=== PATIENT | female | born 1990 | race Two or more races ===

== ENCOUNTER 2016-10-17 15:16 | Emergency (ER) | payer MEDICAID, OTHER ==
[~2016-10-17] VITALS: Ht 162.6 cm; Wt 49.9 kg
[2016-10-17] MEDS ORDERED: ONDANSETRON 4 MG/2 ML VIAL IV ONE (16:15)
[2016-10-17] MEDS ORDERED: IV NORMAL SALINE 1000 ML BAG IV ONE (16:15)
[2016-10-17 16:22] LABS: *URINE HCG, QUAL NEGATIVE (NEGATIVE)
[2016-10-17 16:23] LABS: *BILIRUBIN,URIN NEGATIVE (NEGATIVE); *BLOOD, URINE 3+ (NEGATIVE); *COLOR,URINE YELLOW (YELLOW); *KETONES,URINE 1+ (NEGATIVE); *PROTEIN,URINE TRACE (NEGATIVE); *UROBILINOGEN,URINE 0.2 E.U./dl (NORMAL); LEUKOCYTE ESTERASE ,URINE TRACE (NEGATIVE); NITRITE, URINE NEGATIVE (NEGATIVE); UGLUCOSE NEGATIVE (NEGATIVE)
[2016-10-17 16:29] LABS: BASOPHILS # (AUTO) 0.4 K/uL (0.0-8.0); BASOPHILS % (AUTO) 2.9 % (0.0-2.0); EOSINOPHILS % (AUTO) 0.2 % (0.0-7.0); HEMATOCRIT 42.1 % (37-47); HEMOGLOBIN 13.7 G/DL (12.0-16.0); LYMPHOCYTES # (AUTO) 0.3 K/UL (0.8-4.8); LYMPHOCYTES % (AUTO) 2.4 % (20.5-51.5); MEAN CORPUSCULAR HGB CONC 33 g/dL (32.0-37.0); MEAN CORPUSCULAR VOLUME 86.1 FL (81.0-99.0); MONOCYTES # (AUTO) 0.3 K/UL (0.1-1.30); MONOCYTES % (AUTO) 2.2 % (0.0-11.0); NEUTROPHILS # (AUTO) 11.1 K/UL (1.8-8.9); NEUTROPHILS % (AUTO) 92.3 % (38.5-71.5); PLATELET COUNT (AUTO) 210 K/UL (150-450); RED BLOOD CELL COUNT(AUTO) 4.89 MIL/UL (4.2-5.4); WHITE BLOOD COUNT (AUTO) 12.1 K/UL (4.0-11.2)
[2016-10-17 16:33] LABS: CREATININE 0.9 mg/dL (0.6-1.3)
[2016-10-17] MEDS ORDERED: ONDANSETRON 4 MG/2 ML VIAL ONE (16:36)
[2016-10-17 16:39] LABS: BILIRUBIN,DIRECT 0.1 mg/dL (0.0-0.2); BILIRUBIN,TOTAL 0.8 mg/dL (0.2-1.0); TOTAL PROTEIN, SERUM 7.4 g/dL (6.4-8.2)
[2016-10-17 16:40] LABS: *CLARITY,URINE HAZY (CLEAR)
[2016-10-17 16:42] LABS: BACTERIA,URINE FEW /HPF (NONE SEEN); MUCUS,URINE MANY /LPF (0-FEW); SQUAMOUS EPITHELIAL CELL,UR MODERATE /HPF (NONE SEEN)
[2016-10-17 16:52] LABS: BAND % (MANUAL) 11 % (0-10); LYMPHOCYTES % (MANUAL) 3 % (20-40); MONOCYTES % (MANUAL) 1 % (2-10); NEUTROPHILS % (MANUAL) 85 % (42-75)
--- NOTE | 2016-10-17 17:31 | NUR ---
Patient discharged to home in stable conditon. Written and verbal after care instructions given. Patient verbalizes understanding of instructions.
== END 2016-10-17 17:33 | disposition home or self-care (01) ==
LOC: ER 15:29
DX: N39.0 Urinary tract infection, site not specified (principal); R11.2 Nausea with vomiting, unspecified
CPT/HCPCS: 36415; 83690; 84703; 85025; A4663; J2405; J7030

== ENCOUNTER 2016-10-18 00:49 | Emergency (ER) | payer OTHER ==
[~2016-10-18] VITALS: Ht 162.6 cm; Wt 49.9 kg
[2016-10-18 01:30] LABS: *BILIRUBIN,URIN NEGATIVE (NEGATIVE); *BLOOD, URINE 2+ (NEGATIVE); *CLARITY,URINE CLEAR (CLEAR); *COLOR,URINE YELLOW (YELLOW); *KETONES,URINE NEGATIVE (NEGATIVE); *PROTEIN,URINE NEGATIVE (NEGATIVE); *UROBILINOGEN,URINE 0.2 E.U./dl (NORMAL); LEUKOCYTE ESTERASE ,URINE TRACE (NEGATIVE); NITRITE, URINE NEGATIVE (NEGATIVE); PH,URINE 5.5 (5.0-8.0); UGLUCOSE NEGATIVE (NEGATIVE)
[2016-10-18 01:32] LABS: BASOPHILS # (AUTO) 0.1 K/uL (0.0-8.0); EOSINOPHILS % (AUTO) 0.2 % (0.0-7.0); HEMATOCRIT 38.3 % (37-47); HEMOGLOBIN 12.8 G/DL (12.0-16.0); LYMPHOCYTES # (AUTO) 0.4 K/UL (0.8-4.8); LYMPHOCYTES % (AUTO) 5.2 % (20.5-51.5); MEAN CORPUSCULAR HEMOGLOBIN 28.4 UUG (27.0-31.0); MEAN CORPUSCULAR HGB CONC 33 g/dL (32.0-37.0); MEAN CORPUSCULAR VOLUME 85.2 FL (81.0-99.0); MONOCYTES # (AUTO) 0.3 K/UL (0.1-1.30); MONOCYTES % (AUTO) 4.2 % (0.0-11.0); NEUTROPHILS # (AUTO) 7.3 K/UL (1.8-8.9); NEUTROPHILS % (AUTO) 89.4 % (38.5-71.5); PLATELET COUNT (AUTO) 198 K/UL (150-450); WHITE BLOOD COUNT (AUTO) 8.1 K/UL (4.0-11.2)
[2016-10-18 01:34] LABS: *URINE HCG, QUAL NEGATIVE (NEGATIVE)
[2016-10-18] MEDS: ONDANSETRON 4 MG/2 ML VIAL IV ONE (01:35)
[2016-10-18] MEDS: IV NORMAL SALINE 1000 ML BAG IV ONE (01:37)
[2016-10-18 01:38] LABS: BACTERIA,URINE MODERATE /HPF (NONE SEEN); SQUAMOUS EPITHELIAL CELL,UR MODERATE /HPF (NONE SEEN)
[2016-10-18 01:41] LABS: CREATININE 1.1 mg/dL (0.6-1.3); POTASSIUM 3.3 mmol/L (3.5-5.1)
[2016-10-18] MEDS ORDERED: ONDANSETRON 4 MG/2 ML VIAL ONE (01:41)
--- NOTE | 2016-10-18 01:45 | NUR ---
Patient transported to radiology for CT of abd/pelvis with contrast. Consent signed by patient and witnessed.
[2016-10-18 01:52] LABS: BILIRUBIN,DIRECT 0.1 mg/dL (0.0-0.2); BILIRUBIN,TOTAL 0.8 mg/dL (0.2-1.0); TOTAL PROTEIN, SERUM 6.9 g/dL (6.4-8.2)
[2016-10-18] MEDS ORDERED: IV NORMAL SALINE 250 ML IV ONE (01:52)
[2016-10-18] MEDS ORDERED: IOHEXOL 300MG/ML 100 ML INFUS..BTL ONE (01:52)
[2016-10-18] MEDS ORDERED: CEFTRIAXONE 1 G VIAL ONE (02:16)
[2016-10-18] MEDS: NITROFURANTOIN/NITROFURAN MAC 100 MG CAPSULE PO ONE (02:16)
[2016-10-18] MEDS: CEFTRIAXONE 1 G in IV DEXTROSE 5% 50 ML IV ONE (02:16)
[2016-10-18] MEDS ORDERED: NITROFURANTOIN/NITROFURAN MAC 100 MG CAPSULE ONE (02:19)
[2016-10-18] MEDS ORDERED: HYDROMORPHONE 2 MG/1 ML DISP.SYRIN ONE (02:31)
[2016-10-18] MEDS: HYDROMORPHONE 1 MG/1 ML DISP.SYRIN IV ONE (03:07)
--- NOTE | 2016-10-18 03:08 | NUR ---
Patient discharged to home in stable conditon accompanied by father. Written and verbal after care instructions given. Rx given. Patient verbalizes understanding of instructions.
[2016-10-18 03:10] VITALS: BP 100/53
== END 2016-10-18 03:10 | disposition home or self-care (01) ==
LOC: ER 00:51
DX: N39.0 Urinary tract infection, site not specified (principal); R11.2 Nausea with vomiting, unspecified
CPT/HCPCS: 36415; 74177; 76705; 80048; 80076; 81001; 83690; 84703; 85025; 87086; 96361; 96365; 96375; 99285; A4663; J0696; J2405; J7030; J7050; J7060; Q9967; J1170